=== PATIENT | male | born 1955 | race Native Hawaiian/Other Pacific Islander ===

== ENCOUNTER 2019-12-26 07:44 | Day surgery (SDC) | payer OTHER, SELFPAY ==
[2019-12-23 10:10] VITALS: BMI 26.4
--- NOTE | 2019-12-24 15:12 | P.CONAN_ITS ---
Documented by User: Litzy Caraballo 12/24/19 15:17 HPI - Anesthesia Eval Consult details Narrative: 64yo M for colonoscopy: screening [facility] Past Medical History Medical History (Updated 12/24/19 @ 15:16 by Litzy Caraballo) AAA (abdominal aortic aneurysm) Cirrhosis COPD (chronic obstructive pulmonary disease) Diabetes mellitus Elevated cholesterol History of alcohol abuse HTN (hypertension) Hx of cocaine abuse Hx of hepatitis C Hx of smoking Neurocognitive disorder On beta alysia at home Parkinsons disease PVD (peripheral vascular disease) Renal agenesis, unilateral Schizophrenia Seizure disorder Surgical History Surgical History (Updated 12/23/19 @ 09:57 by Mikaela Ash) H/O colonoscopy Hx of appendectomy Social History Social History Smoking Status: Former smoker Smoking Quit Date: 2007 Use of substances other than those prescribed or required for medical reasons: No Advance Directives: No Advance Directives Information Provided: No Advance Directives on File: No Meds Allergies Allergy/AdvReac Type Severity Reaction Status Date / Time No Known Allergies Allergy Verified 12/23/19 09:58 [No Known Allergies*] Home Medications Medication Instructions Recorded Confirmed Type albuterol sulfate 1 inh INHALATION QID PRN 12/23/19 12/23/19 History brexpiprazole 1 mg PO BEDTIME 12/23/19 12/23/19 History clozapine 100 mg PO BID 12/23/19 12/23/19 History fluoxetine 60 mg PO DAILY 12/23/19 12/23/19 History folic acid 1 mg PO DAILY 12/23/19 12/23/19 History lisinopril 10 mg PO DAILY 12/23/19 12/23/19 History lorazepam 1 mg PO DAILY 12/23/19 12/23/19 History lorazepam 2 mg PO BEDTIME 12/23/19 12/23/19 History memantine 10 mg PO BID 12/23/19 12/23/19 History metformin 500 mg PO DAILY 12/23/19 12/23/19 History pravastatin 20 mg PO BEDTIME 12/23/19 12/23/19 History propranolol 5 mg PO BID 12/23/19 12/23/19 History trazodone 200 mg PO BEDTIME 12/23/19 12/23/19 History Exam Exam Date and Time: December 24, 2019 1512 Height,Weight and Vital Signs: Height 5 ft 6 in Weight 74.389 kg Assessment and Plan Assessment Anesthesia Assessment: Chart Reviewed Documented by User: Jeb De Paz 12/26/19 09:24 [facility] Past Medical History Medical History (Updated 12/24/19 @ 15:16 by Litzy Caraballo) AAA (abdominal aortic aneurysm) Cirrhosis COPD (chronic obstructive pulmonary disease) Diabetes mellitus Elevated cholesterol History of alcohol abuse HTN (hypertension) Hx of cocaine abuse Hx of hepatitis C Hx of smoking Neurocognitive disorder On beta alysia at home Parkinsons disease PVD (peripheral vascular disease) Renal agenesis, unilateral Schizophrenia Seizure disorder Surgical History Surgical History (Updated 12/23/19 @ 09:57 by Mikaela Ash) H/O colonoscopy Hx of appendectomy Social History Social History Smoking Status: Former smoker Smoking Quit Date: 2007 Use of substances other than those prescribed or required for medical reasons: No Advance Directives: No Advance Directives Information Provided: No Advance Directives on File: No Meds Allergies Allergy/AdvReac Type Severity Reaction Status Date / Time No Known Allergies Allergy Verified 12/23/19 09:58 [No Known Allergies*] Home Medications Medication Instructions Recorded Confirmed Type albuterol sulfate 1 inh INHALATION QID PRN 12/23/19 12/23/19 History brexpiprazole 1 mg PO BEDTIME 12/23/19 12/23/19 History clozapine 100 mg PO BID 12/23/19 12/23/19 History fluoxetine 60 mg PO DAILY 12/23/19 12/23/19 History folic acid 1 mg PO DAILY 12/23/19 12/23/19 History lisinopril 10 mg PO DAILY 12/23/19 12/23/19 History lorazepam 1 mg PO DAILY 12/23/19 12/23/19 History lorazepam 2 mg PO BEDTIME 12/23/19 12/23/19 History memantine 10 mg PO BID 12/23/19 12/23/19 History metformin 500 mg PO DAILY 12/23/19 12/23/19 History pravastatin 20 mg PO BEDTIME 12/23/19 12/23/19 History propranolol 5 mg PO BID 12/23/19 12/23/19 History trazodone 200 mg PO BEDTIME 12/23/19 12/23/19 History Exam Airway Mallampati Class: III TM Dist: >3cm Neck ROM: Full Partial: Upper and Lower Heart: RRR Assessment and Plan Assessment Anesthesia Assessment: Anesthesia Plan Discussed Final Anesthetic Review NPO: Yes (Water >2 hours. Otherwise nothing >8 hours) ASA Class: IV Final Preanesthetic Review: Consent Obtained/Reviewed Anesthetic Plan Anesthetic Plan: MAC: Disposition: Standard PACU
[2019-12-26 09:10] VITALS: BP 162/74; PULSE 78; RESP 18; TEMP 35.8; O2SAT 98
--- NOTE | 2019-12-26 09:11 | P.HPSUR_ITS ---
Pre-Procedural Eval Section B Chief Complaint: SCREENING Relevant Social History: None Present Medications: see Short Stay Collaborative assessment Medical History: Significant History (AAA (abdominal aortic aneurysm) Cirrhosis COPD (chronic obstructive pulmonary disease) Diabetes mellitus Elevated cholesterol History of alcohol abuse HTN (hypertension) Hx of cocaine abuse Hx of hepatitis C Hx of smoking Neurocognitive disorder On beta alysia at home Parkinsons disease PVD (periph) History of Previous Operations: Relevant previous surgery/procedure and date(s) (appendectomy) Allergies: Allergies Allergy/AdvReac Type Severity Reaction Status Date / Time No Known Allergies Allergy Verified 12/23/19 09:58 [No Known Allergies*] Review of Systems Sugical H&P ROS: Negative: Constitution, Cardiovascular, Respiratory, Neurological, Psychiatric, Hem-Onc, Allergic/Immunologic, Gastrointestinal, [place] tourinary, Musculoskeletal, Integumentary, Endocrine and Eyes/Ears/Nose/Throat Exam Surgical H&P Exam: Normal: HEENT, Normal: Heart, Normal: Lungs, Normal: Extremities, Normal: Abdomen, Normal: Skin and Normal: Neurological Plan Diagnosis/Plan: Unchanged Patient has been examined and remains a candidate for the planned procedure
--- NOTE | 2019-12-26 09:11 | PM.OP ---
Brief Operative Note Date of procedure: 12/26/19 Pre-op diagnosis: colon screen Post-op diagnosis: same Procedure: colonoscopy Surgeon: Taylor Martinez MD Anesthesia: MAC Estimated blood loss (mL): 0 Condition: stable Disposition: PACU
[2019-12-26 09:15] LABS: Glucose, Whole Blood 83 mg/dL (60-115)
--- NOTE | 2019-12-26 09:21 | P.OP_ITS ---
Operative Note Operative Note Narrative: Operative Information Procedure Description: Colonoscopy COLONOSCOPY Instrument: Olympus variable stiffness pediatric scope 190L Colonoscopy Monitoring: Vital signs and clinical assessment, continuous EKG monitoring, Pulse oximetry, Carbon Dioxide monitoring and blood pressure monitoring were done throughout the procedure. Colon withdrawal time was 13 minutes. Procedure: The patient was placed in the left lateral decubitis position and pre-procedure medications were administered. After a digital rectal examination of the ano-rectum, the video colonoscope was inserted into the rectum and advanced through the colon to the cecum The colonoscope was slowly withdrawn in a retrograde panoramic fashion and the colon mucosa was carefully examined including a retroflexed view of the rectum. Findings and interventions are described below. Procedure Difficulty: difficult due to poor prep Findings: Terminal Ileum-not intubated Cecum: 8-10 mm sessile polyp removed with cold snare Ascending Colon: 10 mm sessile polyp removed with cold snare Transverse Colon -normal Descending Colon: 8 mm sessile polyp removed with cold snare Sigmoid Colon: normal Rectum: Retroflexion with small internal hemorrhoids, grade I Anorectum - normal Colon preparation: [place] Bowel Preparation Scale Right colon; 2 Transverse colon: 2 Left colon; 0 (0 = Unprepared colon segment with mucosa not seen due to solid stool that cannot be cleared. 1 = Portion of mucosa of the colon segment seen, but other areas of the colon segment not well seen due to staining, residual stool and/or opaque liquid. 2 = Minor amount of residual staining, small fragments of stool and/or opaque liquid, but mucosa of colon segment seen well. 3 = Entire mucosa of colon segment seen well with no residual staining, small fragments of stool or opaque liquid) Impression and Post Procedure Diagnosis: polyps internal hemorrhoids Plan: High fiber diet leaflet Avoid straining at stool, epsom salts and sitz bath prn, anusol supps or cream prn Repeat Colonoscopy in 6-12 months due to prep, stress compliance with prep next time, review instructions Above findings were reviewed with the patient and relevant handouts were provided if indicated.
[2019-12-26] MEDS: Lactated Ringers 1,000 ML 100 ML IVCONT (09:34)
[2019-12-26 10:23] VITALS: BP 88/42; PULSE 66; RESP 16; TEMP 36.1; O2SAT 94
[2019-12-26 10:25] VITALS: BP 96/43; RESP 16; O2SAT 94
[2019-12-26 10:38] VITALS: BP 114/55; PULSE 67; RESP 18; O2SAT 94
[2019-12-26 10:51] VITALS: BP 157/74; PULSE 71; RESP 18; TEMP 36.1
--- NOTE | 2019-12-26 11:27 | PC.NURSE ---
Discharge instructions given over the phone to sister Judith per pt's permission. Pt cognitively impaired d/t parkinsons. Pt had episode of incontinence in discharge area; sister made aware of this.
--- NOTE | 2019-12-26 11:27 | HO.POSTANES ---
Post Anesthesia Evaluation Post Anesthesia Evaluation Vital Signs: Vital Signs Temp Pulse Resp BP Pulse Ox 12/26/19 10:51 97 F 71 18 157/74 H 12/26/19 10:38 67 18 114/55 L 94 12/26/19 10:25 16 96/43 L 94 12/26/19 10:23 96.9 F 66 16 88/42 L 94 12/26/19 09:10 96.4 F L 78 18 162/74 H 98 Anesthesia: Monitored Mental Status: Awake Pain Control: Satisfactory Nausea/Vomiting: None Hydration: Adequate Anesthesia-Related Issues: No Anes. Related Issues
== END 2019-12-26 11:40 | disposition home or self-care (01) ==
PROVIDERS: PCP Internal Medicine; Visit Provider Internal Medicine Gastroenterology
PROC: 0DJD8ZZ Inspection of Lower Intestinal Tract, Via Natural or Artificial Opening Endoscopic (ICD-10-PCS; CPT 45378; principal; 2019-12-26 08:30)
DX: Z12.11 Encounter for screening for malignant neoplasm of colon (principal); D12.0 Benign neoplasm of cecum; D12.2 Benign neoplasm of ascending colon; D12.4 Benign neoplasm of descending colon; K64.0 First degree hemorrhoids; K74.69 Other cirrhosis of liver; G20 Parkinson's disease; G40.909 Epilepsy, unspecified, not intractable, without status epilepticus; E11.9 Type 2 diabetes mellitus without complications; J44.9 Chronic obstructive pulmonary disease, unspecified; I71.4 Abdominal aortic aneurysm, without rupture; I73.9 Peripheral vascular disease, unspecified; Z79.84 Long term (current) use of oral hypoglycemic drugs; Z79.899 Other long term (current) drug therapy; Z87.891 Personal history of nicotine dependence
CPT/HCPCS: 45385; 82947; 88305; J2370

== ENCOUNTER → 2020-01-17 08:54 | Outpatient (BNVA) | payer OTHER, SELFPAY | PROVIDERS: PCP Internal Medicine; Referring Provider Internal Medicine; Visit Provider Internal Medicine Gastroenterology | DX: Z76.89 Persons encountering health services in other specified circumstances (principal) ==

== ENCOUNTER → 2020-09-21 11:07 | Outpatient (BNVA) | payer OTHER, SELFPAY | PROVIDERS: Visit Provider Internal Medicine Gastroenterology ==

== ENCOUNTER 2020-09-28 13:31 | Outpatient (REF) | payer OTHER, SELFPAY ==
[2020-09-28 14:18] LABS: MANUAL DIFF FLAG NO
[2020-09-28 14:27] LABS: Basophils Percent Auto 0.3 % (0-2); Eosinophils Percent Auto 0.3 % (0-4); Hematocrit 40.6 % (42-52); Hemoglobin 13.4 g/dl (14.0-18.0); Imm Gran Abs Auto 0.05 X10*3/uL (0.00-0.03); Imm Gran Pct Auto 0.7 % (0.0-0.4); Lymphocytes Absolute Auto 1.9 X10*3/uL (1.2-4.9); Lymphocytes Percent Auto 24.9 % (20-40); Mean Corpuscular Hemoglobin 30.3 pg (27.0-33.0); Mean Corpuscular Volume 91.9 fL (80-98); Mean Platelet Volume 10.9 fL (9.4-12.4); Monocytes Absolute Auto 0.7 X10*3/uL (0.1-1.2); Monocytes Percent Auto 9.7 % (2-11); Neutrophils Absolute Auto 4.9 X10*3/uL (2.0-8.3); Neutrophils Percent Auto 64.1 % (45-73); Platelet Count 210 X10*3/uL (160-400); Red Blood Count 4.42 X10*6/uL (4.60-5.80); Red Cell Distribution Width 12.6 % (11.0-16.0); White Blood Count 7.6 X10*3/uL (4.8-10.8)
[2020-09-28 14:32] LABS: Prothrombin Time 10.9 SEC (9.9-13.0)
[2020-09-28 14:52] LABS: Alanine Aminotransferase 26 U/L (0-40); Albumin Level 4.1 g/dL (3.5-5.0); Alkaline Phosphatase 107 U/L (39-117); Anion Gap 13 (12-20); Aspartate Amino Transferase 24 U/L (5-37); Bilirubin Direct 0.2 mg/dL (0.0-0.5); Bilirubin Total 0.4 mg/dL (0.0-1.0); Blood Urea Nitrogen 10 mg/dL (9-16); Carbon Dioxide 23 mmol/L (22-29); Chloride 106 mmol/L (96-108); Estimated Glomerular Filt Rate > 60; Glucose Random 75 mg/dL (60-115); Potassium 4.2 mmol/L (3.3-5.1); Sodium 138 mmol/L (135-145); Total Protein 7.6 g/dL (6.5-8.0)
== END 2020-09-28 13:32 | disposition home or self-care (01) ==
LOC: HO.LAB 13:31
PROVIDERS: Visit Provider Internal Medicine Gastroenterology
DX: R93.2 Abnormal findings on diagnostic imaging of liver and biliary tract (principal); K63.5 Polyp of colon
CPT/HCPCS: 36415; 80048; 80076; 85025; 85610

== ENCOUNTER 2020-11-12 11:59 | Day surgery (SDC) | payer OTHER, SELFPAY ==
[2020-11-09 10:01] VITALS: BMI 27.3
--- NOTE | 2020-11-11 13:59 | HO.ANESPROP2 ---
Documented by User: Litzy Caraballo NP 11/11/20 14:04 HPI - Anesthesia Eval Consult details Narrative: 64yo M for Colonoscopy s/p colo with MAC 11/2019, poor prep h/o ETOH abuse, in remission, ? cirrhosis AAA @ 4.5cm 11/2019, followed by PCP, yearly imaging recommended [facility] Active Problems Active Problems: All Active Problems (Updated 01/17/20 @ 10:23 by Taylor Martinez MD) Colon polyps (Acute) Abnormal liver diagnostic imaging (Acute) Past Medical History Medical History AAA (abdominal aortic aneurysm) Cirrhosis COPD (chronic obstructive pulmonary disease) Diabetes mellitus Elevated cholesterol History of alcohol abuse HTN (hypertension) Hx of cocaine abuse Hx of hepatitis C Hx of smoking Neurocognitive disorder On beta alysia at home Parkinsons disease PVD (peripheral vascular disease) Renal agenesis, unilateral Schizophrenia Seizure disorder Family History Family History Father History of heart attack Mother Hx of cancer of lung Surgical History Surgical History History of colonoscopy Hx of appendectomy Social History Social History Alcohol intake: never Patient Tobacco Use Status: Never used Tobacco Use of substances other than those prescribed or required for medical reasons: No Have you been hit, kicked, punched, or otherwise hurt by someone within the past year? If so, by whom?: No Are you DNR?: No Advance Directives: No Advance Directives Information Provided: Yes Recently lost weight without trying: No Nutrition Risks: No Nutritional Risk Meds Allergies Allergy/AdvReac Type Severity Reaction Status Date / Time No Known Allergies Allergy Verified 09/21/20 11:07 [No Known Allergies*] Home Medications Medication Instructions Recorded Confirmed Last Taken Type brexpiprazole 1 mg tablet 3 mg PO BEDTIME 12/23/19 11/09/20 Unknown History clozapine 100 mg tablet 100 mg PO BID 12/23/19 11/09/20 11/12/20 History fluoxetine 60 mg tablet 60 mg PO DAILY 12/23/19 11/09/20 11/12/20 History folic acid 1 mg tablet 1 mg PO DAILY 12/23/19 11/09/20 Unknown History lisinopril 10 mg tablet 20 mg PO DAILY 12/23/19 11/09/20 Unknown History lorazepam 2 mg tablet 2 mg PO BID 12/23/19 11/09/20 11/12/20 History memantine 10 mg tablet 10 mg PO BID 12/23/19 11/09/20 11/12/20 History metformin 500 mg tablet 500 mg PO DAILY 12/23/19 11/09/20 Unknown History pravastatin 20 mg tablet 20 mg PO BEDTIME 12/23/19 11/09/20 Unknown History propranolol 10 mg tablet 5 mg PO BID 12/23/19 11/09/20 11/12/20 History trazodone 100 mg tablet 200 mg PO BEDTIME 12/23/19 11/09/20 Unknown History amlodipine 10 mg tablet 10 mg PO DAILY 11/09/20 11/09/20 11/12/20 History Exam Exam Date and Time: November 11, 2020 135 Height,Weight and Vital Signs: Height 5 ft 6 in Weight 76.9 kg Pertinent Lab Results Pertinent Lab Results: Laboratory Tests 09/28/20 09/28/20 13:45 13:45 WBC 7.6 Hgb 13.4 L Hct 40.6 L Plt Count 210 Sodium 138 Potassium 4.2 Chloride 106 Carbon Dioxide 23 BUN 10 Creatinine 0.90 Assessment and Plan Assessment Anesthesia Assessment: Chart Reviewed Documented by User: Jacki Russo MD 11/12/20 13:00 [facility] Past Medical History Medical History AAA (abdominal aortic aneurysm) Cirrhosis COPD (chronic obstructive pulmonary disease) Diabetes mellitus Elevated cholesterol History of alcohol abuse HTN (hypertension) Hx of cocaine abuse Hx of hepatitis C Hx of smoking Neurocognitive disorder On beta alysia at home Parkinsons disease PVD (peripheral vascular disease) Renal agenesis, unilateral Schizophrenia Seizure disorder Functional capacity: independent ambulation Family History Family History Father History of heart attack Mother Hx of cancer of lung Family history of problems with anesthesia: No Surgical History Surgical History History of colonoscopy Hx of appendectomy History of Problems with Anesthesia: No Social History Social History Alcohol intake: never Patient Tobacco Use Status: Never used Tobacco Use of substances other than those prescribed or required for medical reasons: No Have you been hit, kicked, punched, or otherwise hurt by someone within the past year? If so, by whom?: No Are you DNR?: No Advance Directives: No Advance Directives Information Provided: Yes Recently lost weight without trying: No Nutrition Risks: No Nutritional Risk Meds Allergies Allergy/AdvReac Type Severity Reaction Status Date / Time No Known Allergies Allergy Verified 09/21/20 11:07 [No Known Allergies*] Home Medications Medication Instructions Recorded Confirmed Last Taken Type brexpiprazole 1 mg tablet 3 mg PO BEDTIME 12/23/19 11/09/20 Unknown History clozapine 100 mg tablet 100 mg PO BID 12/23/19 11/09/20 11/12/20 History fluoxetine 60 mg tablet 60 mg PO DAILY 12/23/19 11/09/20 11/12/20 History folic acid 1 mg tablet 1 mg PO DAILY 12/23/19 11/09/20 Unknown History lisinopril 10 mg tablet 20 mg PO DAILY 12/23/19 11/09/20 Unknown History lorazepam 2 mg tablet 2 mg PO BID 12/23/19 11/09/20 11/12/20 History memantine 10 mg tablet 10 mg PO BID 12/23/19 11/09/20 11/12/20 History metformin 500 mg tablet 500 mg PO DAILY 12/23/19 11/09/20 Unknown History pravastatin 20 mg tablet 20 mg PO BEDTIME 12/23/19 11/09/20 Unknown History propranolol 10 mg tablet 5 mg PO BID 12/23/19 11/09/20 11/12/20 History trazodone 100 mg tablet 200 mg PO BEDTIME 12/23/19 11/09/20 Unknown History amlodipine 10 mg tablet 10 mg PO DAILY 11/09/20 11/09/20 11/12/20 History Exam Airway Mallampati Class: II TM Dist: >3cm Neck ROM: Full Heart: RRR Lungs: CTA Assessment and Plan Final Anesthetic Review Family History of Problems with Anesthesia: No History of Problems with Anesthesia: No
[2020-11-12 12:41] LABS: Glucose, Whole Blood 94 mg/dL (60-115)
[2020-11-12 12:45] VITALS: BP 105/67; PULSE 83; RESP 18; TEMP 36.3; O2SAT 96
[2020-11-12] MEDS: Lactated Ringers 1,000 ML 50 ML IVCONT (12:55)
--- NOTE | 2020-11-12 13:00 | HO.ANESPROP2 ---
[facility] Active Problems Active Problems: All Active Problems (Updated 01/17/20 @ 10:23 by Taylor Martinez MD) Colon polyps (Acute) Abnormal liver diagnostic imaging (Acute) Past Medical History Medical History AAA (abdominal aortic aneurysm) Cirrhosis COPD (chronic obstructive pulmonary disease) Diabetes mellitus Elevated cholesterol History of alcohol abuse HTN (hypertension) Hx of cocaine abuse Hx of hepatitis C Hx of smoking Neurocognitive disorder On beta alysia at home Parkinsons disease PVD (peripheral vascular disease) Renal agenesis, unilateral Schizophrenia Seizure disorder Functional capacity: independent ambulation Family History Family History Father History of heart attack Mother Hx of cancer of lung Family history of problems with anesthesia: No Surgical History Surgical History History of colonoscopy Hx of appendectomy History of Problems with Anesthesia: No Social History Social History Alcohol intake: never Patient Tobacco Use Status: Never used Tobacco Use of substances other than those prescribed or required for medical reasons: No Have you been hit, kicked, punched, or otherwise hurt by someone within the past year? If so, by whom?: No Are you DNR?: No Advance Directives: No Advance Directives Information Provided: Yes Recently lost weight without trying: No Nutrition Risks: No Nutritional Risk Meds Allergies Allergy/AdvReac Type Severity Reaction Status Date / Time No Known Allergies Allergy Verified 09/21/20 11:07 [No Known Allergies*] Active Medications: Current Medications Generic Name Dose Route Start Last Admin Trade Name Freq PRN Reason Stop Dose Admin Albuterol Sulfate 2.5 mg 11/12/20 12:28 Albuterol Sulfate (0.083%) 2.5 Mg/3 Ml Vial.Neb INHALE ONCE PRN Shortness of Breath/Wheezing Lactated Ringer's 1,000 mls @ 50 mls/hr 11/12/20 12:30 11/12/20 12:55 Lr IVCONT 50 mls/hr .Q20H MARRY Administration Home Medications Medication Instructions Recorded Confirmed Last Taken Type brexpiprazole 1 mg tablet 3 mg PO BEDTIME 12/23/19 11/09/20 Unknown History clozapine 100 mg tablet 100 mg PO BID 12/23/19 11/09/20 11/12/20 History fluoxetine 60 mg tablet 60 mg PO DAILY 12/23/19 11/09/20 11/12/20 History folic acid 1 mg tablet 1 mg PO DAILY 12/23/19 11/09/20 Unknown History lisinopril 10 mg tablet 20 mg PO DAILY 12/23/19 11/09/20 Unknown History lorazepam 2 mg tablet 2 mg PO BID 12/23/19 11/09/20 11/12/20 History memantine 10 mg tablet 10 mg PO BID 12/23/19 11/09/20 11/12/20 History metformin 500 mg tablet 500 mg PO DAILY 12/23/19 11/09/20 Unknown History pravastatin 20 mg tablet 20 mg PO BEDTIME 12/23/19 11/09/20 Unknown History propranolol 10 mg tablet 5 mg PO BID 12/23/19 11/09/20 11/12/20 History trazodone 100 mg tablet 200 mg PO BEDTIME 12/23/19 11/09/20 Unknown History amlodipine 10 mg tablet 10 mg PO DAILY 11/09/20 11/09/20 11/12/20 History Exam Exam Date and Time: November 12, 2020 1300 Height,Weight and Vital Signs: Height 5 ft 6 in Weight 76.9 kg Last Vital Signs Temp 97.3 F 11/12/20 12:45 Pulse 83 11/12/20 12:45 Resp 18 11/12/20 12:45 BP 105/67 11/12/20 12:45 Pulse Ox 96 11/12/20 12:45 Pertinent Lab Results Pertinent Lab Results: Laboratory Tests 11/12/20 12:35 POC Glucose 94 Assessment and Plan Final Anesthetic Review Family History of Problems with Anesthesia: No History of Problems with Anesthesia: No
--- NOTE | 2020-11-12 13:34 | P.HPSUR_ITS ---
Pre-Procedural Eval Section A Date of Service: 11/12/20 Section B Chief Complaint: Polyp of Colon Relevant Family History (Specify if Yes): No Relevant Social History: None Present Medications: see Short Stay Collaborative assessment Medical History: Significant History (AAA (abdominal aortic aneurysm) Cirrhosis COPD (chronic obstructive pulmonary disease) Diabetes mellitus Elevated cholesterol History of alcohol abuse HTN (hypertension) Hx of cocaine abuse Hx of hepatitis C Hx of smoking Neurocognitive disorder On beta alysia at home Parkinsons disease PVD (periph) History of Previous Operations: Relevant previous surgery/procedure and date(s) (appendectomy) Allergies: Allergies Allergy/AdvReac Type Severity Reaction Status Date / Time No Known Allergies Allergy Verified 09/21/20 11:07 [No Known Allergies*] Review of Systems Sugical H&P ROS: Negative: Constitution, Cardiovascular, Respiratory, Neurological, Psychiatric, Hem-Onc, Allergic/Immunologic, Gastrointestinal, Genitourinary, Musculoskeletal, Integumentary, Endocrine and Eyes/Ear s/Nose/Throat Exam Surgical H&P Exam: Normal: HEENT, Normal: Heart, Normal: Lungs, Normal: Extremities, Normal: Abdomen, Normal: Skin and Normal: Neurological Plan Diagnosis/Plan: Unchanged I have reviewed the history and physical and performed a pertinent physical examination on my patient. No changes have occurred unless specified.
--- NOTE | 2020-11-12 13:35 | P.OP_ITS ---
Operative Note Operative Note Date of Service: 11/12/20 Narrative: Operative Information Procedure Description: Colonoscopy COLONOSCOPY Instrument: Olympus variable stiffness adult scope 190L Colonoscopy Monitoring: Vital signs and clinical assessment, continuous EKG monitoring, Pulse oximetry, Carbon Dioxide monitoring and blood pressure monitoring were done throughout the procedure. Colon withdrawal time was 23 minutes. Procedure: The patient was placed in the left lateral decubitis position and pre-procedure medications were administered. After a digital rectal examination of the ano-rectum, the video colonoscope was inserted into the rectum and advanced through the colon to the cecum/TI. The colonoscope was slowly withdrawn in a retrograde panoramic fashion and the colon mucosa was carefully examined including a retroflexed view of the rectum. Findings and interventions are described below. Procedure Difficulty:moderate, pressure applied, redundant colon with looping Findings: Terminal Ileum-not intubated due to looping Cecum:normal Ascending Colon: normal Transverse Colon -normal Descending Colon: x 2 sessile polyps removed with forceps 5-7 mm Sigmoid Colon: normal Rectum: Retroflexion with small internal hemorrhoids, grade I Anorectum - normal Colon preparation: [place] Bowel Preparation Scale Right colon; 1 Transverse colon: 2 Left colon; 1 (0 = Unprepared colon segment with mucosa not seen due to solid stool that cannot be cleared. 1 = Portion of mucosa of the colon segment seen, but other areas of the colon segment not well seen due to staining, residual stool and/or opaque liquid. 2 = Minor amount of residual staining, small fragments of stool and/or opaque liquid, but mucosa of colon segment seen well. 3 = Entire mucosa of colon segment seen well with no residual staining, small fragments of stool or opaque liquid) Impression and Post Procedure Diagnosis: polyps internal hemorrhoids Plan: High fiber diet leaflet Avoid straining at stool, epsom salts and sitz bath, anusol supps or cream Repeat Colonoscopy in 1-2 years or earlier if clinically indicated Next time would start in prone position using adult scope Above findings were reviewed with the patient and relevant handouts were provided if indicated.
--- NOTE | 2020-11-12 13:35 | P.BOP_ITS ---
Brief Operative Note Date of Service: 11/12/20 Pre-op diagnosis: hx of colon polyps Post-op diagnosis: same Procedure: see op note Surgeon: Taylor Martinez MD Anesthesia: MAC Was an Poultry Offal Icer used for this Procedure?: No Estimated blood loss (mL): 0 Condition: stable Disposition: PACU
[2020-11-12 14:32] VITALS: BP 102/54; PULSE 72; RESP 16; TEMP 36.3; O2SAT 98
[2020-11-12 14:45] VITALS: BP 123/66; PULSE 74; RESP 16; O2SAT 99
[2020-11-12 15:02] VITALS: BP 139/72; PULSE 80; RESP 16; TEMP 36.3; O2SAT 99
--- NOTE | 2020-11-12 17:21 | HO.POSTANES ---
Post Anesthesia Evaluation Post Anesthesia Evaluation Vital Signs: Vital Signs Temp Pulse Resp BP Pulse Ox 11/12/20 15:02 97.3 F 80 16 139/72 99 11/12/20 14:45 74 16 123/66 99 11/12/20 14:32 97.3 F 72 16 102/54 L 98 11/12/20 12:45 97.3 F 83 18 105/67 96 Anesthesia: Monitored Mental Status: Awake Pain Control: Satisfactory Nausea/Vomiting: None Hydration: Adequate Anesthesia-Related Issues: No Anes. Related Issues
== END 2020-11-12 15:44 | disposition home or self-care (01) ==
PROVIDERS: Visit Provider Internal Medicine Gastroenterology
PROC: 0DJD8ZZ Inspection of Lower Intestinal Tract, Via Natural or Artificial Opening Endoscopic (ICD-10-PCS; CPT 45378; principal; 2020-11-12 13:50)
DX: Z12.11 Encounter for screening for malignant neoplasm of colon (principal); Z86.010 Personal history of colon polyps; D12.4 Benign neoplasm of descending colon; K64.0 First degree hemorrhoids; J44.9 Chronic obstructive pulmonary disease, unspecified; G40.909 Epilepsy, unspecified, not intractable, without status epilepticus; G20 Parkinson's disease; E11.9 Type 2 diabetes mellitus without complications; I10 Essential (primary) hypertension; F20.9 Schizophrenia, unspecified; I73.9 Peripheral vascular disease, unspecified; I71.4 Abdominal aortic aneurysm, without rupture; Z86.19 Personal history of other infectious and parasitic diseases; Z79.84 Long term (current) use of oral hypoglycemic drugs; Z79.899 Other long term (current) drug therapy
CPT/HCPCS: 45380; 82947; 88305

== ENCOUNTER 2021-04-30 15:48 | Outpatient (REF) | payer OTHER, SELFPAY ==
--- NOTE | ~2021-04-30 | MR_ITS ---
MRI OF THE BRAIN WITH AND WITHOUT IV CONTRAST INDICATION: Right arm weakness. COMPARISON: None available. TECHNIQUE: Multiplanar multisequence MR imaging of the brain was obtained without and following the administration of 8.5 mL of Gadavist without complication. FINDINGS: There is no pathologic intracranial enhancement. There is mild chronic microangiopathy. There is no hydrocephalus, extra-axial surface collection, or herniation. The major flow voids at the skull base are preserved. There is no acute infarct on diffusion-weighted imaging. There is no intracranial hemorrhage on the gradient recalled echo acquisition. The midline structures are normal. The cerebellar tonsils are normally positioned. The cerebellum and brainstem are normal. The craniocervical junction is normal. Osseous marrow signal intensity is homogenous. The visualized soft tissues are unremarkable. MR/MR head/brain wo/w con IMPRESSION: - No acute intracranial findings. No enhancing lesions. - Mild chronic microangiopathy.
== END 2021-04-30 15:49 | disposition home or self-care (01) ==
LOC: HO.MRI 15:48
PROVIDERS: Visit Provider Psychiatry & Neurology Neurology
DX: R25.1 Tremor, unspecified (principal); R53.1 Weakness; Z91.81 History of falling
CPT/HCPCS: 70553; A9585

== ENCOUNTER → 2021-06-07 11:07 | Outpatient (BNVA) | payer OTHER, SELFPAY | PROVIDERS: PCP Obstetrics & Gynecology; Referring Provider Internal Medicine; Visit Provider Internal Medicine Gastroenterology | DX: D12.6 Benign neoplasm of colon, unspecified (principal); R93.2 Abnormal findings on diagnostic imaging of liver and biliary tract | CPT/HCPCS: 99212 ==

== ENCOUNTER 2023-10-06 11:55 | Outpatient (REF) | payer OTHER, SELFPAY ==
[2023-10-06 12:53] LABS: MANUAL DIFF FLAG NO
[2023-10-06 13:20] LABS: Basophils Percent Auto 0.4 % (0-2); Eosinophils Percent Auto 0.1 % (0-4); Hematocrit 42.7 % (42.0-52.0); Hemoglobin 14.1 g/dl (14.0-18.0); Imm Gran Abs Auto 0.04 X10*3/uL (0.00-0.03); Imm Gran Pct Auto 0.6 % (0.0-0.4); Lymphocytes Absolute Auto 1.3 X10*3/uL (1.2-4.9); Mean Corpuscular Hemoglobin 30.5 pg (27.0-33.0); Mean Corpuscular Volume 92.4 fL (80.0-98.0); Mean Platelet Volume 10.6 fL (9.4-12.4); Monocytes Absolute Auto 0.6 X10*3/uL (0.1-1.2); Monocytes Percent Auto 8.8 % (2-11); Neutrophils Absolute Auto 4.8 x10*3/uL (2.0-8.3); Neutrophils Percent Auto 71.1 % (45-73); Platelet Count 195 X10*3/uL (160-400); Red Blood Count 4.62 X10*6/uL (4.60-5.80); Red Cell Distribution Width 13.8 % (11.0-16.0); White Blood Count 6.8 X10*3/uL (4.8-10.8)
[2023-10-06 14:03] LABS: Alanine Aminotransferase 39 U/L (0-40); Albumin Level 4.1 g/dL (3.5-5.0); Alkaline Phosphatase 119 U/L (39-117); Anion Gap 11 (12-20); Aspartate Amino Transferase 24 U/L (5-37); Bilirubin Total 0.4 mg/dL (0.0-1.0); Blood Urea Nitrogen 12 mg/dL (9-16); Calcium 9.2 mg/dL (8.4-10.2); Carbon Dioxide 26 mmol/L (22-29); Chloride 109 mmol/L (96-108); Estimated Glomerular Filt Rate > 60; Glucose Random 100 mg/dL (60-115); Sodium 142 mmol/L (135-145); Total Protein 7.9 g/dL (6.5-8.0)
[2023-10-06 14:08] LABS: Ferritin 72 ng/mL (20-250); Vitamin D 25-OH Total 29.1 ng/mL (>30)
[2023-10-06 14:21] LABS: Folate > 20.0 ng/mL (> or = 4.0); Vitamin B12 336 pg/mL (200-900)
[2023-10-08 04:12] LABS: HBS Num1 0.58 mIU/mL (0-7.99); HBc Num1 0.08 S/CO (0.00-0.79); HBsAGNum1 0.23 S/CO (0.00-0.99); Hepatitis A Antibody IgM 0.22 Index (0-0.79); Hepatitis B Core Antibody Nonreactive (Nonreactive); Hepatitis B Surface Antigen Negative (Negative); ~Hepatitis A Antibody IgM Nonreactive (Nonreactive); ~Hepatitis B Surface Antibody NONREACTIVE (Nonreactive); ~Hepatitis C Antibody Reactive (Nonreactive)
[2023-10-09 09:18] LABS: Immunoglobulin G 1611 mg/dL (600-1540)
[2023-10-11 15:19] LABS: Zinc 53 mcg/dL (60-130)
[2023-10-11 16:08] LABS: Vitamin B6 2.7 ng/mL (2.1-21.7)
[2023-10-11 17:08] LABS: Vitamin B5 (Pantothenic Acid) 42 ng/mL (<275)
[2023-10-11 17:12] LABS: Nicotinamide <20 ng/mL (see note); Vit B3 - Nicotinic Acid <20 ng/mL (see note)
[2023-10-11 23:28] LABS: Vitamin A 39 mcg/dL (38-98)
[2023-10-13 13:24] LABS: Vitamin B1 20 nmol/L (8-30)
== END 2023-10-06 11:56 | disposition home or self-care (01) ==
LOC: HO.LAB 11:55
PROVIDERS: PCP Internal Medicine; Visit Provider Internal Medicine Gastroenterology
DX: R93.2 Abnormal findings on diagnostic imaging of liver and biliary tract (principal); K75.81 Nonalcoholic steatohepatitis (NASH); K52.839 Microscopic colitis, unspecified; D12.6 Benign neoplasm of colon, unspecified
CPT/HCPCS: 36415; 80053; 82306; 82607; 82728; 82746; 82784; 84207; 84425; 84590; 84591; 84630; 85025; 85610; 86704; 86706; 86709; 86803; 87340; 99212

== ENCOUNTER 2023-10-06 11:55 | Outpatient (AMB) | payer OTHER, SELFPAY ==
[2023-10-06 12:00] VITALS: BP 123/78; PULSE 90; BMI 30.3
--- NOTE | 2023-10-06 12:00 | A.OFFVIS_ITS ---
Vital Signs 10/06/23 12:00 Height 5 ft 6 in Weight 187 lb 13.341 oz BMI 30.3 BP 123/78 Blood Pressure Location Lt brachial Position Sitting Pulse 90 Intake Visit Reasons: [facility] hx of [facility] polyps Intake Note: Patient in office today in follow up for colonic polyps. CC: Patient reports diarrhea once a week and incontinence of feces. He states he is wearing Depends . Denies other GI concerns today. Provider Relations Consultant Required: No Allergies No Known Allergies [No Known Allergies*] Allergy (Verified 10/06/23 12:03) HPI HPI Follow up [facility] hx of colonic polyps: Details: 67 yr old m with hx of copd, AAA, cocaine use, Hep c, schizophrenia, DM< epilepsy and HTN being seen for cirrhosis f/u RECAP: pt had US at [facility] 05/2018--cirrhosis, no hcc, aaa 4 cm further imaging with normal appearing liver and v low ealstography score, labs also unremarkable so I was acutally not really convinced he had cirrhosis, he denies any sx does endorse soft stools, and goes several times a day no blood in stool did have colonoscopy in distant past but says pcp said he is due another one he stopped drinking alcoohl 35 yrs ago, same time stopped cocaine he had hep c treatment few yrs ago and was successful no fh of crc or polyps rept US liver 01/2019-- mid distal aortic aneurysm, f0, f1 elastography--liver appeared normal, no nodularity rept LABS: 12/2018--cbc nml incl plts, nml LFt AND BMP, mild raised SMA, Hep C Ab pos, C282y neg colonoscopy 2019--poor prep--3 polyps removed colonoscopy 2020-- TA and hyperplastic polyp removed INTERIM: he is doing well no abdo pain no nausea or vomiting denies diarrhea or constipation. he has good appetite he has poor memory as before, but he is ok with sharing info for dates of procedures etc with his sister Judith-- he was supposed to get labs and US--still not done EXAM: GENERAL: The patient is well developed and nontoxic. head nodding tremor VITAL SIGNS:see workflow HEENT: Nonicteric sclerae, PERRLA, EOMI. Oropharynx clear. Moist mucous membranes. Conjunctivae appear well perfused. No thyroid mass. CHEST: Chest wall is nontender. HEART: Regular rate and rhythm without murmurs. LUNGS: Clear to auscultation bilaterally. ABDOMEN: Soft, positive bowel sounds, nontender, no organomegaly.no flank tenderness SKIN: No rash, no excessive bruising, petechiae, or purpura. NEUROLOGIC: Cranial nerves II-XII intact without motor/sensory deficit. psych--flat affect Assessment & Plan (1) Colon polyps, colonoscopy with poor prep--overdue on this (2) Abn imaging previously of liver, no real evidence to support cirrhosis from before PLAN: 1/ repeat imaging and lab work now 2/ repeat colon now with suprep prep Sisiter --Judith-- in charts, can call her with dates of appointments [facility] Medical History AAA (abdominal aortic aneurysm) Cirrhosis COPD (chronic obstructive pulmonary disease) Diabetes mellitus Elevated cholesterol History of alcohol abuse HTN (hypertension) Hx of cocaine abuse Hx of hepatitis C Hx of smoking Neurocognitive disorder On beta alysia at home Parkinsons disease PVD (peripheral vascular disease) Renal agenesis, unilateral Schizophrenia Seizure disorder Surgical History History of colonoscopy Hx of appendectomy Family History Father History of heart attack Mother Hx of cancer of lung Social History Alcohol intake: never Patient Tobacco Use Status: Never used Tobacco Physical Exam Vital Signs: BMI result Body Mass Index 30.3 Assessment & Plan Assessment & Plan (1) Colon polyps: Code(s): K63.5 - Polyp of colon Category: Medical Qualifiers: Colon polyp type: adenomatous Colon location: unspecified part of colon Qualified Code(s): D12.6 - Benign neoplasm of colon, unspecified Plan: see above Coding Level of Care Code Est Pt Level 4 (96527) Diagnoses Adenomatous polyp of colon, unspecified part of colon D12.6 Colon polyp type: adenomatous Colon location: unspecified part of colon
== END 2023-10-06 12:18 | disposition home or self-care (01) ==
PROVIDERS: PCP Obstetrics & Gynecology; Visit Provider Internal Medicine Gastroenterology
DX: D12.6 Benign neoplasm of colon, unspecified (principal)
CPT/HCPCS: 99214

== ENCOUNTER 2023-10-26 08:52 | Outpatient (REF) | payer OTHER, SELFPAY ==
--- NOTE | ~2023-10-26 | US_ITS ---
EXAMINATION: US ABDOMEN LIMITED WITH LIVER ELASTOGRAPHY CLINICAL INFORMATION: AYON. COMPARISON: None available. TECHNIQUE: Real-time imaging of the abdominal viscera. Noninvasive ultrasound liver fibrosis assessment is performed using Steve ElastPQ point quantification shear wave elastography (pSWE) with a 5 MHz transducer. Multiple elastography samples are obtained. FINDINGS: PANCREAS: The visualized pancreatic head and body appear enlarged, possibly secondary to fatty infiltration. The remainder of the pancreas is obscured from visualization by the overlying bowel gas. LIVER: The liver is enlarged with mildly increased echogenicity. No focal lesion or intrahepatic biliary duct dilatation. The right lobe measures 18 cm in length. The left lobe measures 10.3 cm in length. Portal flow is hepatopedal. Shear wave elastography provides a median stiffness of 1.18 m/s (reference: normal median stiffness is 0.81 - 1.22 m/s). The IQR/median stiffness to assess sampling precision is 0.15 (reference: optimal IQR/median stiffness is under 0.3). GALLBLADDER: Normal. The gallbladder is physiologically distended without evidence of stones, sludge, polyps, wall thickening or pericholecystic fluid. COMMON BILE DUCT: Normal in caliber measuring 0.4 cm in diameter. RIGHT KIDNEY: Normal. No hydronephrosis. No renal calculi or focal parenchymal lesions. The kidney measures 14.4 cm in maximum dimension. FREE FLUID: None. ADDITIONAL FINDINGS: There is an infrarenal distal abdominal aortic aneurysm present that measures 5.0 cm in greatest dimension. US/US abdomen hernandez w elastography IMPRESSION: 1. Enlarged fatty liver. 2. Elastography: Liver elastography measurements are within normal (METAVIR Stage F0). Electronically signed by: Wilberto Collier MD 11/02/2023 09:56 PM EDT
== END 2023-10-26 08:53 | disposition home or self-care (01) ==
LOC: HO.US 08:52
PROVIDERS: Visit Provider Internal Medicine Gastroenterology
DX: K75.81 Nonalcoholic steatohepatitis (NASH) (principal); K74.60 Unspecified cirrhosis of liver
CPT/HCPCS: 76705; 76981